=== PATIENT | female | born 1935 | race Caucasian/White ===

== ENCOUNTER 2016-10-30 11:09 | Inpatient (IN) | payer MEDICARE, MEDICAID ==
[~2016-10-30] VITALS: Ht 162.6 cm; Wt 83.3 kg
[~2016-10-30 11:09] MED LIST: ETOMIDATE 2MG/ML 10ML VIAL IV ONE; FAMO20TA8 PO; PRAV20TA57 PO; SUCCINYLCHOLINE CHLORIDE 200MG/10ML VIAL IV ONE
[2016-10-30] MEDS ORDERED: SODIUM CHLORIDE 0.9% 1,000 ML IV ONE (11:28)
[2016-10-30 12:36] LABS: PROTHROMBIN TIME 10.4 sec (9.4-11.6)
[2016-10-30 12:38] LABS: BASOPHILS % 0.6 % (0.0-2.0); EOSINOPHILS % 0.3 % (0.0-5.0); HEMOGLOBIN. 10.1 g/dL (12.0-16.0); LYMPHOCYTES % 8.4 % (20.0-50.0); MEAN CORPUSCULAR HEMOGLOBIN 24.2 pg (28.0-32.0); MEAN PLATELET VOLUME 8.9 fl (7.4-10.4); MONOCYTES % 6.3 % (2.0-8.0); NEUTROPHILS % 84.4 % (40.0-76.0); PLATELET 440 x1000/uL (130-400); RED BLOOD CELL COUNT 4.16 mill/uL (4.2-5.4); RED CELL DISTRIBUTION WIDTH 19.1 % (11.6-14.6)
[2016-10-30 12:45] LABS: CARBON DIOXIDE 27 mEq/L (21-32); CHLORIDE 92 mEq/L (98-107); TROPONIN I 0.05 ng/mL (0.00-0.04)
[2016-10-30] MEDS ORDERED: CEFTRIAXONE 1 G PREMIX 50 ML IV ONE (12:45)
[2016-10-30] MEDS ORDERED: SODIUM CHLORIDE 0.9% 10ML VIAL ONE (14:05)
[2016-10-30] MEDS ORDERED: IOHEXOL-300 100 ML BOTTLE ONE (14:05)
[2016-10-30] MEDS ORDERED: ONDANSETRON HCL 4MG/2ML VIAL IV PRN (15:45)
[2016-10-30] MEDS ORDERED: DEXTROSE 50% WATER 50ML SYRINGE IV PRN (15:45)
[2016-10-30] MEDS ORDERED: MIDAZOLAM HCL 2 MG/2 ML VIAL IV ONE (16:00)
[2016-10-30] MEDS ORDERED: NOREPINEPHRINE 4 MG in DEXT 5% WATER 246 ML IV ONE (16:00)
[2016-10-30] MEDS ORDERED: CLINDAMYCIN 600 MG in DEXTROSE 5% WATER 50 ML IV ONE (16:00)
[2016-10-30 16:28] LABS: TOTAL IRON BINDING CAPACITY 288 ug/dL (250-450)
[2016-10-30] MEDS ORDERED: SUCCINYLCHOLINE CHLORIDE 200MG/10ML VIAL IV ONE (16:30)
[2016-10-30] MEDS ORDERED: NOREPINEPHRINE 4 MG in DEXT 5% WATER 246 ML IV NR (16:30)
[2016-10-30] MEDS ORDERED: ETOMIDATE 2MG/ML 10ML VIAL IV ONE (16:30)
[2016-10-30] MEDS ORDERED: MIDAZOLAM HCL 50 MG in DEXTROSE 5% WATER 40 ML IV ONE (16:30)
[2016-10-30 16:35] LABS: HEMATOCRIT. 28.4 % (36.0-48.0); MEAN CORPUSCULAR HEMOGLOBIN 24.2 pg (28.0-32.0); MEAN CORPUSCULAR VOLUME 76.8 fL (81.0-99.0); PLATELET 350 x1000/uL (130-400); RED CELL DISTRIBUTION WIDTH 19.1 % (11.6-14.6)
[2016-10-30] MEDS ORDERED: MIDAZOLAM HCL 50 MG in DEXTROSE 5% WATER 40 ML IV NR (16:45)
[2016-10-30] MEDS ORDERED: BLOOD SUGAR DIAGNOSTIC STRIP TEST SCH (17:00)
[2016-10-30 17:06] LABS: BG BASE EXCESS 2.3 mmol/L (-2.0-2.0); BG CARBOXYHEMOGLOBIN 0.5 % (0.5-1.5); BG HCO3 ACT 25.8 mmol/L (22.0-26.0); BG METHEMOGLOBIN 0.2 % (0.0-1.5); BG OXYHEMOGLOBIN 98.3 % (94.0-97.0); BG PCO2 36.5 mmHg (35.0-45.0); BG PH 7.468 (7.350-7.450); BG PO2 145.4 mmHg (75.0-100.0); BG SAMPLE SITE RIGHT BRACHIAL; BG TIDAL VOLUME(mL) 500 mL; BG TOTAL HEMOGLOBIN 11.4 g/dL (12.0-18.0); BG VENT MODE VENT - A/C; BG VENT RATE 14 set
[2016-10-30 17:10] LABS: PLATELET ESTIMATE NORMAL
[2016-10-30] MEDS: IPRATROPIUM/ALBUTEROL 0.5-3(2.5)MG/3ML NEB HHN SCH (19:52)
[2016-10-30] MEDS ORDERED: DEXT 5%/0.45% NACL 1000ML 1,000 ML IV SCH (21:00)
[2016-10-30] MEDS: METOPROLOL TARTRATE 50MG TABLET PEG SCH (21:30)
[2016-10-30] MEDS: BLOOD SUGAR DIAGNOSTIC STRIP TEST SCH (22:23)
[2016-10-30] MEDS: INSULIN LISPRO 100 UNITS/ML SUBCUT SCH (22:26)
[2016-10-30] MEDS ORDERED: VANCOMYCIN 1250MG in DEXTROSE 5% WATER 250ML IV NR (23:00)
[2016-10-31] MEDS: PIPERACILLIN/TAZ 3.375G PREMIX 50 ML IV SCH ×3 (00:35→12:10)
[2016-10-31] MEDS: IPRATROPIUM/ALBUTEROL 0.5-3(2.5)MG/3ML NEB HHN SCH ×4 (01:51→19:39)
[2016-10-31 05:45] LABS: HEMATOCRIT. 29.3 % (36.0-48.0); HEMOGLOBIN. 9.1 g/dL (12.0-16.0); MEAN CORPUSCULAR HEMOGLOBIN 24.3 pg (28.0-32.0); MEAN CORPUSCULAR VOLUME 77.8 fL (81.0-99.0); MEAN PLATELET VOLUME 8.9 fl (7.4-10.4); PLATELET 357 x1000/uL (130-400); RED BLOOD CELL COUNT 3.76 mill/uL (4.2-5.4); RED CELL DISTRIBUTION WIDTH 18.8 % (11.6-14.6)
[2016-10-31 06:07] LABS: PHOSPHORUS 3.7 mg/dL (2.5-4.9)
[2016-10-31] MEDS ORDERED: NOREPINEPHRINE 8 MG in DEXT 5% WATER 492 ML IV PRN (06:15)
[2016-10-31] MEDS: BLOOD SUGAR DIAGNOSTIC STRIP TEST SCH ×4 (06:18→20:42)
[2016-10-31] MEDS: INSULIN LISPRO 100 UNITS/ML SUBCUT SCH ×4 (06:20→20:42)
[2016-10-31 07:58] LABS: BG BASE EXCESS 3.1 mmol/L (-2.0-2.0); BG CARBOXYHEMOGLOBIN 0.4 % (0.5-1.5); BG DEOXYHEMOGLOBIN 1.4 % (0.0-5.0); BG FRACTION INSPIRED OXYGEN 40; BG HCO3 ACT 26.1 mmol/L (22.0-26.0); BG METHEMOGLOBIN 0.2 % (0.0-1.5); BG OXYGEN SATURATION 98.6 % (92.0-98.5); BG PCO2 33.7 mmHg (35.0-45.0); BG PH 7.507 (7.350-7.450); BG PO2 115.3 mmHg (75.0-100.0); BG SAMPLE SITE RIGHT BRACHIAL; BG TIDAL VOLUME(mL) 500 mL; BG TOTAL HEMOGLOBIN 9.5 g/dL (12.0-18.0); BG VENT MODE VENT - A/C; BG VENT RATE 14 set
[2016-10-31] MEDS ORDERED: MORPHINE SULFATE 4 MG/ML CPJ (NOT FOR IM USE) IV PRN (08:30)
[2016-10-31] MEDS: METOPROLOL TARTRATE 50MG TABLET PEG SCH (08:57)
[2016-10-31] MEDS: PANTOPRAZOLE SODIUM 40 MG/VIAL IV SCH (09:59)
[2016-10-31] MEDS: SODIUM CHLORIDE 0.9% 1,000 ML IV SCH (10:52)
[2016-10-31] MEDS: PROPOFOL 10MG/ML 100ML 100 ML IV PRN (10:55)
[2016-10-31] MEDS ORDERED: VANCOMYCIN 750 MG PREMIX 150 ML IV SCH (11:00)
[2016-10-31 11:31] LABS: PLATELET ESTIMATE NORMAL
[2016-10-31] MEDS ORDERED: VANCOMYCIN 500 MG PREMIX 100 ML IV NR (13:00)
[2016-10-31] MEDS ORDERED: LIDOCAINE HCL 1% 20ML VIAL (Pyxis) INJ INFIL NR (14:15)
[2016-10-31] MEDS: PIPERACILLIN/TAZ 2.25G PREMIX 50 ML IV SCH (22:08)
[2016-11-01 00:38] LABS: CLARITY URINE TURBID (CLEAR); COLOR URINE YELLOW (YELLOW); KETONES URINE NEGATIVE (NEGATIVE); LEUKOCYTE ESTERASE URINE 3+ (NEGATIVE); NITRITE URINE NEGATIVE (NEGATIVE); OCCULT BLOOD URINE 3+ (NEGATIVE); PROTEIN URINE 2+ (NEGATIVE); SPECIFIC GRAVITY URINE 1.033 (1.005-1.030); UROBILINOGEN URINE 0.2 E.U./dL (0.2-1.0)
[2016-11-01] MEDS: IPRATROPIUM/ALBUTEROL 0.5-3(2.5)MG/3ML NEB HHN SCH ×4 (01:51→20:08)
[2016-11-01] MEDS: SODIUM CHLORIDE 0.9% 1,000 ML IV SCH (04:00)
[2016-11-01] MEDS: PROPOFOL 10MG/ML 100ML 100 ML IV PRN (05:20)
[2016-11-01 05:34] LABS: BASOPHILS % 0.9 % (0.0-2.0); HEMATOCRIT. 24.4 % (36.0-48.0); HEMOGLOBIN. 7.7 g/dL (12.0-16.0); LYMPHOCYTES % 8.1 % (20.0-50.0); MEAN CORPUSCULAR HEMOGLOBIN 24.3 pg (28.0-32.0); MEAN CORPUSCULAR VOLUME 77.1 fL (81.0-99.0); MEAN PLATELET VOLUME 8.8 fl (7.4-10.4); MONOCYTES % 5.3 % (2.0-8.0); NEUTROPHILS % 84.7 % (40.0-76.0); PLATELET 301 x1000/uL (130-400); RED BLOOD CELL COUNT 3.17 mill/uL (4.2-5.4); RED CELL DISTRIBUTION WIDTH 19.3 % (11.6-14.6)
[2016-11-01] MEDS: PIPERACILLIN/TAZ 2.25G PREMIX 50 ML IV SCH ×3 (06:24→22:05)
[2016-11-01] MEDS: BLOOD SUGAR DIAGNOSTIC STRIP TEST SCH ×4 (06:28→20:40)
[2016-11-01] MEDS: INSULIN LISPRO 100 UNITS/ML SUBCUT SCH ×4 (06:28→20:31)
[2016-11-01] MEDS: PANTOPRAZOLE SODIUM 40 MG/VIAL IV SCH (08:26)
[2016-11-01] MEDS ORDERED: MORPHINE SULFATE 4 MG/ML CPJ (NOT FOR IM USE) IV PRN (10:00)
[2016-11-01] MEDS ORDERED: LORAZEPAM 2MG/ML CPJ IV PRN (10:00)
[2016-11-01] MEDS ORDERED: VANCOMYCIN 750 MG PREMIX 150 ML IV SCH (13:00)
[2016-11-01 13:45] LABS: BG BASE EXCESS 2.3 mmol/L (-2.0-2.0); BG CARBOXYHEMOGLOBIN 0.7 % (0.5-1.5); BG DEOXYHEMOGLOBIN 0.8 % (0.0-5.0); BG FRACTION INSPIRED OXYGEN 40; BG HCO3 ACT 25.8 mmol/L (22.0-26.0); BG METHEMOGLOBIN 0.3 % (0.0-1.5); BG OXYGEN SATURATION 99.2 % (92.0-98.5); BG OXYHEMOGLOBIN 98.2 % (94.0-97.0); BG PCO2 35.3 mmHg (35.0-45.0); BG PH 7.482 (7.350-7.450); BG PO2 148.8 mmHg (75.0-100.0); BG PRESSURE SUPPORT 8; BG SAMPLE SITE RIGHT RADIAL; BG TIDAL VOLUME(mL) 500 mL; BG TOTAL HEMOGLOBIN 8.2 g/dL (12.0-18.0); BG VENT MODE VENT - SIMV; BG VENT RATE 12 set
[2016-11-02] MEDS: IPRATROPIUM/ALBUTEROL 0.5-3(2.5)MG/3ML NEB HHN SCH ×4 (02:02→19:56)
[2016-11-02 05:18] LABS: BASOPHILS % 0.8 % (0.0-2.0); EOSINOPHILS % 1.3 % (0.0-5.0); HEMATOCRIT. 27.7 % (36.0-48.0); HEMOGLOBIN. 8.9 g/dL (12.0-16.0); LYMPHOCYTES % 8.1 % (20.0-50.0); MEAN CORPUSCULAR HEMOGLOBIN 25.7 pg (28.0-32.0); MEAN CORPUSCULAR VOLUME 79.7 fL (81.0-99.0); MEAN PLATELET VOLUME 8.7 fl (7.4-10.4); MONOCYTES % 5.9 % (2.0-8.0); NEUTROPHILS % 83.9 % (40.0-76.0); PLATELET 257 x1000/uL (130-400); RED BLOOD CELL COUNT 3.48 mill/uL (4.2-5.4); RED CELL DISTRIBUTION WIDTH 18.6 % (11.6-14.6)
[2016-11-02] MEDS: PIPERACILLIN/TAZ 2.25G PREMIX 50 ML IV SCH ×3 (05:46→21:43)
[2016-11-02] MEDS: BLOOD SUGAR DIAGNOSTIC STRIP TEST SCH ×4 (05:54→21:41)
[2016-11-02] MEDS: INSULIN LISPRO 100 UNITS/ML SUBCUT SCH ×4 (05:54→21:46)
[2016-11-02] MEDS: PANTOPRAZOLE SODIUM 40 MG/VIAL IV SCH (08:46)
[2016-11-02] MEDS ORDERED: VANCOMYCIN 1250MG in DEXTROSE 5% WATER 250ML IV SCH (10:00)
[2016-11-02 11:19] LABS: BG BASE EXCESS 3.4 mmol/L (-2.0-2.0); BG CARBOXYHEMOGLOBIN 0.3 % (0.5-1.5); BG DEOXYHEMOGLOBIN 1.1 % (0.0-5.0); BG FRACTION INSPIRED OXYGEN 40; BG HCO3 ACT 27.2 mmol/L (22.0-26.0); BG METHEMOGLOBIN 0.2 % (0.0-1.5); BG OXYGEN SATURATION 98.9 % (92.0-98.5); BG OXYHEMOGLOBIN 98.4 % (94.0-97.0); BG PCO2 38.1 mmHg (35.0-45.0); BG PH 7.471 (7.350-7.450); BG PO2 155.5 mmHg (75.0-100.0); BG PRESSURE SUPPORT 6; BG SAMPLE SITE RIGHT RADIAL; BG TOTAL HEMOGLOBIN 9.5 g/dL (12.0-18.0); BG VENT MODE VENT - CPAP
[2016-11-02] MEDS: SODIUM CHLORIDE 0.9% 1,000 ML IV SCH ×2 (18:40→21:45)
[2016-11-03] MEDS: IPRATROPIUM/ALBUTEROL 0.5-3(2.5)MG/3ML NEB HHN SCH ×4 (02:16→21:06)
[2016-11-03] MEDS: BLOOD SUGAR DIAGNOSTIC STRIP TEST SCH ×4 (05:44→20:35)
[2016-11-03] MEDS: PIPERACILLIN/TAZ 2.25G PREMIX 50 ML IV SCH ×3 (05:46→20:35)
[2016-11-03] MEDS: INSULIN LISPRO 100 UNITS/ML SUBCUT SCH ×4 (06:54→20:45)
[2016-11-03] MEDS: PANTOPRAZOLE SODIUM 40 MG/VIAL IV SCH (08:35)
[2016-11-03] MEDS: VANCOMYCIN 750 MG PREMIX 150 ML IV SCH (18:08)
[2016-11-03] MEDS: SODIUM CHLORIDE 0.9% 1,000 ML IV SCH (20:40)
[2016-11-04] MEDS: IPRATROPIUM/ALBUTEROL 0.5-3(2.5)MG/3ML NEB HHN SCH ×4 (01:26→19:51)
[2016-11-04] MEDS: PIPERACILLIN/TAZ 2.25G PREMIX 50 ML IV SCH ×3 (01:59→14:22)
[2016-11-04 05:13] LABS: BASOPHILS % 0.9 % (0.0-2.0); EOSINOPHILS % 3.2 % (0.0-5.0); HEMATOCRIT. 27.5 % (36.0-48.0); HEMOGLOBIN. 8.8 g/dL (12.0-16.0); MEAN CORPUSCULAR HEMOGLOBIN 25.8 pg (28.0-32.0); MEAN CORPUSCULAR VOLUME 80.2 fL (81.0-99.0); MEAN PLATELET VOLUME 8.7 fl (7.4-10.4); MONOCYTES % 5.6 % (2.0-8.0); NEUTROPHILS % 77.3 % (40.0-76.0); PLATELET 243 x1000/uL (130-400); RED BLOOD CELL COUNT 3.43 mill/uL (4.2-5.4); RED CELL DISTRIBUTION WIDTH 19.1 % (11.6-14.6)
[2016-11-04 05:55] LABS: PHOSPHORUS 2.1 mg/dL (2.5-4.9)
[2016-11-04] MEDS: BLOOD SUGAR DIAGNOSTIC STRIP TEST SCH ×4 (07:30→20:12)
[2016-11-04] MEDS: INSULIN LISPRO 100 UNITS/ML SUBCUT SCH ×4 (07:36→20:17)
[2016-11-04] MEDS: PANTOPRAZOLE SODIUM 40 MG/VIAL IV SCH (08:19)
[2016-11-04] MEDS ORDERED: POTASSIUM PHOS,M-BASIC-D-BASIC 15 MMOL in DEXT 5% WATER 245 ML IV SCH (10:00)
[2016-11-04] MEDS: FERROUS SULFATE 300MG/5ML UDC PO SCH ×2 (12:39→17:17)
[2016-11-04] MEDS: VANCOMYCIN 750 MG PREMIX 150 ML IV SCH (17:19)
[2016-11-04] MEDS: SODIUM CHLORIDE 0.9% 1,000 ML IV SCH (20:00)
[2016-11-04] MEDS: PIPERACILLIN/TAZ 3.375G PREMIX 50 ML IV SCH (20:00)
[2016-11-05] MEDS: IPRATROPIUM/ALBUTEROL 0.5-3(2.5)MG/3ML NEB HHN SCH ×3 (01:43→13:14)
[2016-11-05] MEDS: PIPERACILLIN/TAZ 3.375G PREMIX 50 ML IV SCH ×3 (02:40→13:13)
[2016-11-05 06:24] LABS: BASOPHILS % 0.6 % (0.0-2.0); EOSINOPHILS % 2.6 % (0.0-5.0); HEMATOCRIT. 27.9 % (36.0-48.0); LYMPHOCYTES % 10.8 % (20.0-50.0); MEAN CORPUSCULAR VOLUME 80.9 fL (81.0-99.0); MEAN PLATELET VOLUME 8.6 fl (7.4-10.4); MONOCYTES % 6.4 % (2.0-8.0); NEUTROPHILS % 79.6 % (40.0-76.0); PLATELET 249 x1000/uL (130-400); RED BLOOD CELL COUNT 3.45 mill/uL (4.2-5.4); RED CELL DISTRIBUTION WIDTH 18.7 % (11.6-14.6)
[2016-11-05 06:33] LABS: CARBON DIOXIDE 21 mEq/L (21-32); CHLORIDE 112 mEq/L (98-107)
[2016-11-05] MEDS: BLOOD SUGAR DIAGNOSTIC STRIP TEST SCH ×2 (06:55→13:14)
[2016-11-05] MEDS: INSULIN LISPRO 100 UNITS/ML SUBCUT SCH ×2 (07:14→14:04)
[2016-11-05] MEDS: FERROUS SULFATE 300MG/5ML UDC PO SCH ×2 (10:30→13:13)
[2016-11-05] MEDS: PANTOPRAZOLE SODIUM 40 MG/VIAL IV SCH (10:30)
[2016-11-05] MEDS: SODIUM CHLORIDE 0.9% 1,000 ML IV SCH (10:31)
[2016-11-05] MEDS ORDERED: LORAZEPAM 2MG/ML CPJ IV PRN (10:45)
[2016-11-05] MEDS ORDERED: MORPHINE SULFATE 4 MG/ML CPJ (NOT FOR IM USE) IV PRN (10:45)
[2016-11-05] MEDS ORDERED: INSULIN DETEMIR UD 100 UNITS/ML SYR SUBCUT SCH (11:00)
[2016-11-05 16:23] VITALS: BP 147/88
[2016-11-06] MEDS ORDERED: FAMOTIDINE 20MG/2ML VIAL IV SCH (09:00)
== END 2016-11-05 17:45 | DRG 871 ==
LOC: EDBEDREQ 11:50 → EDBEDREQSVC 11:50 → ER 12:03 → EDBEDREQ 13:09 → ENRESERV 15:23 → CANRESERV 15:23 → MICUSO 15:54 → EDBEDREQ 15:59 → EDBEDREQSVC 15:59 → ENRESERV 19:08 → EDBEDREQ 20:39 → 5EST 11-04 05:00
PROVIDERS: ADMIT Family Medicine Adult Medicine; ATTEND Family Medicine Adult Medicine
PROC: 5A1945Z Respiratory Ventilation, 24-96 Consecutive Hours (ICD-10-PCS; principal; 2016-10-30)
PROC: 0BH17EZ Insertion of Endotracheal Airway into Trachea, Via Natural or Artificial Opening (ICD-10-PCS; 2016-10-30)
PROC: 30233N1 Transfusion of Nonautologous Red Blood Cells into Peripheral Vein, Percutaneous Approach (ICD-10-PCS; 2016-11-01)
PROC: B548ZZA Ultrasonography of Superior Vena Cava, Guidance (ICD-10-PCS; 2016-11-05)
PROC: 02HV33Z Insertion of Infusion Device into Superior Vena Cava, Percutaneous Approach (ICD-10-PCS; 2016-11-05)
DX: A41.9 Sepsis, unspecified organism (principal); J96.00 Acute respiratory failure, unspecified whether with hypoxia or hypercapnia; N17.0 Acute kidney failure with tubular necrosis; R65.21 Severe sepsis with septic shock; G82.50 Quadriplegia, unspecified; L89.154 Pressure ulcer of sacral region, stage 4; G93.41 Metabolic encephalopathy; I11.0 Hypertensive heart disease with heart failure; E87.0 Hyperosmolality and hypernatremia; I50.40 Unspecified combined systolic (congestive) and diastolic (congestive) heart failure; K61.1 Rectal abscess; E87.1 Hypo-osmolality and hyponatremia; M46.28 Osteomyelitis of vertebra, sacral and sacrococcygeal region; L89.159 Pressure ulcer of sacral region, unspecified stage; F03.90 Unspecified dementia, unspecified severity, without behavioral disturbance, psychotic disturbance, mood disturbance, and anxiety; E11.69 Type 2 diabetes mellitus with other specified complication; D50.0 Iron deficiency anemia secondary to blood loss (chronic); N30.91 Cystitis, unspecified with hematuria; E78.00 Pure hypercholesterolemia, unspecified; E78.1 Pure hyperglyceridemia; E86.0 Dehydration; I25.5 Ischemic cardiomyopathy; K21.9 Gastro-esophageal reflux disease without esophagitis; N14.1 Nephropathy induced by other drugs, medicaments and biological substances; R13.10 Dysphagia, unspecified; R31.0 Gross hematuria; T50.8X5A Adverse effect of diagnostic agents, initial encounter; Z93.1 Gastrostomy status; Z88.2 Allergy status to sulfonamides; Z88.8 Allergy status to other drugs, medicaments and biological substances; Z88.1 Allergy status to other antibiotic agents; Z91.040 Latex allergy status
CPT/HCPCS: 31500; 36415; 36556; 36569; 36600; 51702; 71010; 74177; 76937; 80048; 80053; 80076; 80202; 81001; 82375; 82805; 82962; 83540; 83550; 83605; 83690; 83735; 83880; 84100; 84443; 84478; 84484; 85007; 85025; 85027; 85610; 85651; 86140; 86850; 86900; 86920; 87040; 87086; 93005; 93306; 93970; 94002; 94003; 94640; 96365; 96366; 96375; 99291; A4216; A6261; C1725; C9113; J0330; J0696; J1815; J2250; J2270; J2543; J2704; J3370; J3490; J7030; J7040; J7050; J7060; J7620; P9016; Q9967; A4315

== ENCOUNTER 2018-01-06 16:27 | Inpatient (IN) | payer MEDICARE, MEDICAID ==
[~2018-01-06] VITALS: Ht 165.1 cm; Wt 73.7 kg
[~2018-01-06 16:27] MED LIST changes: +ACET160S GT; +AMLO2.5T45 GT; +BISA10SU8 RC; +CEFT1VIA IM; +CHOL100046 GT; +DEXT15DR5 EACHEYE; -ETOMIDATE 2MG/ML 10ML VIAL IV ONE; +FAMO20TA8 GT; -FAMO20TA8 PO; +FERR220S6 GT; +HYDR-4133 GT; +MAGN800O GT; +MULT-1146 GT; +ONDA4TAB5 GT; +PANT40TA4 GT; -PRAV20TA57 PO; -SUCCINYLCHOLINE CHLORIDE 200MG/10ML VIAL IV ONE
[2018-01-06 19:58] LABS: CLARITY URINE TURBID (CLEAR); COLOR URINE YELLOW (YELLOW); KETONES URINE NEGATIVE (NEGATIVE); LEUKOCYTE ESTERASE URINE 3+ (NEGATIVE); NITRITE URINE NEGATIVE (NEGATIVE); OCCULT BLOOD URINE 1+ (NEGATIVE); PROTEIN URINE 1+ (NEGATIVE); SPECIFIC GRAVITY URINE 1.008 (1.005-1.030); UROBILINOGEN URINE 0.2 E.U./dL (0.2-1.0)
[2018-01-06] MEDS ORDERED: LEVOFLOXACIN 750MG PREMIX 150 ML IV ONE (20:30)
[2018-01-06 20:31] LABS: BASOPHILS % 0.9 % (0.0-2.0); EOSINOPHILS % 2.5 % (0.0-5.0); HEMATOCRIT. 30.2 % (36.0-48.0); LYMPHOCYTES % 9.6 % (20.0-50.0); MEAN CORPUSCULAR HEMOGLOBIN 27.5 pg (28.0-32.0); MEAN CORPUSCULAR VOLUME 83.3 fL (81.0-99.0); MONOCYTES % 6.8 % (2.0-8.0); NEUTROPHILS % 80.2 % (40.0-76.0); PLATELET 351 x1000/uL (130-400); RED BLOOD CELL COUNT 3.63 mill/uL (4.2-5.4); RED CELL DISTRIBUTION WIDTH 17.1 % (11.6-14.6)
[2018-01-06 20:32] LABS: CHLORIDE 95 mEq/L (98-107)
[2018-01-06] MEDS ORDERED: SODIUM CHLORIDE 0.9% 1,000 ML IV ONE (21:11)
[2018-01-07 00:50] VITALS: BP 129/62
[2018-01-07 02:18] VITALS: BP 129/62
[2018-01-07 04:00] VITALS: BP 105/47
[2018-01-07] MEDS: SODIUM CHLORIDE 0.9% 1,000 ML IV SCH ×2 (04:26→12:30)
[2018-01-07] MEDS: HYDRALAZINE HCL 10MG TABLET GT SCH ×2 (05:45→14:36)
[2018-01-07 07:11] LABS: EOSINOPHILS % 2.3 % (0.0-5.0); HEMATOCRIT. 28.6 % (36.0-48.0); HEMOGLOBIN. 9.5 g/dL (12.0-16.0); LYMPHOCYTES % 12.6 % (20.0-50.0); MEAN CORPUSCULAR HEMOGLOBIN 27.6 pg (28.0-32.0); MEAN CORPUSCULAR VOLUME 83.2 fL (81.0-99.0); MONOCYTES % 8.4 % (2.0-8.0); NEUTROPHILS % 75.7 % (40.0-76.0); PLATELET 322 x1000/uL (130-400); RED BLOOD CELL COUNT 3.44 mill/uL (4.2-5.4); RED CELL DISTRIBUTION WIDTH 17.4 % (11.6-14.6)
[2018-01-07 08:00] VITALS: BP 96/32
[2018-01-07] MEDS ORDERED: DEXTROSE 50% WATER 50ML SYRINGE IV PRN (08:15)
[2018-01-07] MEDS ORDERED: LEVOFLOXACIN 500MG PREMIX 100 ML IV SCH (09:00)
[2018-01-07] MEDS ORDERED: FAMOTIDINE 20MG/2ML VIAL IV SCH (09:00)
[2018-01-07] MEDS: INSULIN LISPRO 100 UNITS/ML SUBCUT SCH ×2 (11:55→17:19)
[2018-01-07] MEDS: BLOOD SUGAR DIAGNOSTIC STRIP TEST SCH ×2 (11:55→17:19)
[2018-01-07 12:00] VITALS: BP 122/61
[2018-01-07 16:00] VITALS: BP 107/50
[2018-01-07] MEDS ORDERED: LEVOFLOXACIN 250MG PREMIX 50 ML IV SCH (21:00)
== END 2018-01-07 18:35 | disposition short-term general hospital (02) | DRG 698 ==
LOC: ER 16:27 → 8WST 20:34 → ENRESERV 20:49
PROVIDERS: ADMIT Internal Medicine Critical Care Medicine; ATTEND Internal Medicine Critical Care Medicine
DX: T83.511A Infection and inflammatory reaction due to indwelling urethral catheter, initial encounter (principal); L89.154 Pressure ulcer of sacral region, stage 4; E46 Unspecified protein-calorie malnutrition; I13.0 Hypertensive heart and chronic kidney disease with heart failure and stage 1 through stage 4 chronic kidney disease, or unspecified chronic kidney disease; N17.9 Acute kidney failure, unspecified; N39.0 Urinary tract infection, site not specified; E11.22 Type 2 diabetes mellitus with diabetic chronic kidney disease; E78.00 Pure hypercholesterolemia, unspecified; E86.0 Dehydration; F03.90 Unspecified dementia, unspecified severity, without behavioral disturbance, psychotic disturbance, mood disturbance, and anxiety; I50.9 Heart failure, unspecified; K21.9 Gastro-esophageal reflux disease without esophagitis; Y84.6 Urinary catheterization as the cause of abnormal reaction of the patient, or of later complication, without mention of misadventure at the time of the procedure; N18.3 Chronic kidney disease, stage 3 (moderate); R13.10 Dysphagia, unspecified; Z66 Do not resuscitate; I25.2 Old myocardial infarction; Z86.73 Personal history of transient ischemic attack (TIA), and cerebral infarction without residual deficits; Y92.89 Other specified places as the place of occurrence of the external cause; Z68.27 Body mass index [BMI] 27.0-27.9, adult; Z93.1 Gastrostomy status; Z88.2 Allergy status to sulfonamides; Z88.8 Allergy status to other drugs, medicaments and biological substances; Z91.040 Latex allergy status; Z79.1 Long term (current) use of non-steroidal anti-inflammatories (NSAID); Z79.899 Other long term (current) drug therapy
CPT/HCPCS: 36415; 51702; 71045; 80048; 82962; 83036; 83540; 83550; 84134; 87077; 87186; 93970; 96365; 96366; 99285; J1956; J3490; J7030

== ENCOUNTER 2018-03-28 17:12 | Inpatient (IN) | payer MEDICARE, MEDICAID ==
[~2018-03-28] VITALS: Ht 165.1 cm; Wt 78.9 kg
[~2018-03-28 17:12] MED LIST changes: -CEFT1VIA IM; -CHOL100046 GT
[2018-03-28] MEDS ORDERED: PIPERACILLIN/TAZ 3.375G PREMIX 50 ML IV ONE (18:00)
[2018-03-28] MEDS ORDERED: VANCOMYCIN 1 G PREMIX 200 ML IV ONE (18:00)
[2018-03-28] MEDS ORDERED: LEVOFLOXACIN 750MG PREMIX 150 ML IV ONE (18:00)
[2018-03-28] MEDS ORDERED: SODIUM CHLORIDE 0.9% 1000ML BAG (SEPSIS BOLUS) IV ONE (18:00)
[2018-03-28] MEDS ORDERED: FENTANYL CITRATE/PF 50MCG/ML 2ML VIAL IV ONE (19:00)
[2018-03-28 19:02] LABS: BASOPHILS % 0.8 % (0.0-2.0); EOSINOPHILS % 0.7 % (0.0-5.0); HEMATOCRIT. 25.6 % (36.0-48.0); HEMOGLOBIN. 8.2 g/dL (12.0-16.0); LYMPHOCYTES % 10.3 % (20.0-50.0); MEAN CORPUSCULAR HEMOGLOBIN 26.5 pg (28.0-32.0); MEAN CORPUSCULAR VOLUME 82.6 fL (81.0-99.0); MEAN PLATELET VOLUME 9.6 fl (7.4-10.4); MONOCYTES % 5.8 % (2.0-8.0); NEUTROPHILS % 82.4 % (40.0-76.0); PLATELET 314 x1000/uL (130-400)
[2018-03-28 19:07] LABS: CHLORIDE 100 mEq/L (98-107)
[2018-03-28 19:14] LABS: CLARITY URINE TURBID (CLEAR); COLOR URINE RED (YELLOW); KETONES URINE 2+ (NEGATIVE); LEUKOCYTE ESTERASE URINE 3+ (NEGATIVE); NITRITE URINE POSITIVE (NEGATIVE); OCCULT BLOOD URINE 3+ (NEGATIVE); PROTEIN URINE 3+ (NEGATIVE); SPECIFIC GRAVITY URINE 1.015 (1.005-1.030)
[2018-03-28 19:20] LABS: INR 1.1; PROTHROMBIN TIME 10.9 sec (9.1-11.1)
[2018-03-28] MEDS ORDERED: SODIUM CHLORIDE 0.9% 1,000 ML IV NR (20:05)
[2018-03-28] MEDS ORDERED: CALCIUM CHLORIDE 1GM/10ML SYR IV NR (20:45)
[2018-03-28] MEDS ORDERED: DEXTROSE 50% WATER 50ML SYRINGE IV NR (20:45)
[2018-03-28] MEDS ORDERED: INSULIN REGULAR (HUMULIN R) 300UNITS/3ML IV NR (20:45)
[2018-03-28] MEDS ORDERED: ASPIRIN 325MG TABLET GT NR (21:30)
[2018-03-28 22:45] VITALS: BP 94/53
[2018-03-28 23:41] VITALS: BP 121/53
[2018-03-29] VITALS (11 sets, daily range): BP systolic 65–115; BP diastolic 33–56
[2018-03-29] MEDS ORDERED: INSULIN LANTUS SQ (01:24)
[2018-03-29] MEDS ORDERED: FENO160T9 PO (01:24)
[2018-03-29] MEDS ORDERED: INSULI (01:24)
[2018-03-29] MEDS ORDERED: FOLI-43 PO (01:24)
[2018-03-29] MEDS ORDERED: FLEET ENEMA RC (01:48)
[2018-03-29] MEDS ORDERED: MOM GT (01:48)
[2018-03-29] MEDS ORDERED: [UNRECOGNIZED DRUG - OTHER] (01:48)
[2018-03-29] MEDS ORDERED: PYRI25TA11 GT (01:48)
[2018-03-29] MEDS ORDERED: LOSA50TA3 GT (01:48)
[2018-03-29] MEDS ORDERED: POLY15DR56 EACHEYE (01:48)
[2018-03-29] MEDS ORDERED: SODIUM CHLORIDE 0.9% 250 ML IV ONE (03:15)
[2018-03-29] MEDS: SODIUM CHLORIDE 0.45% 1,000 ML IV SCH ×2 (03:19→16:42)
[2018-03-29] MEDS ORDERED: ACETAMINOPHEN 650MG/20.3ML UDC PO PRN (03:30)
[2018-03-29] MEDS ORDERED: BISACODYL RC SCH (04:00)
[2018-03-29] MEDS ORDERED: ONDANSETRON HCL 4 MG GT SCH (04:00)
[2018-03-29] MEDS ORDERED: MEDICATION NOT ON FORMULARY EA (Famotidine 20 MG) GT SCH (04:00)
[2018-03-29] MEDS ORDERED: BISACODYL 10MG SUPP PR PRN (04:30)
[2018-03-29] MEDS ORDERED: ONDANSETRON 4MG/5ML UDC GT PRN (04:45)
[2018-03-29] MEDS ORDERED: DEXTROSE 50% WATER 50ML SYRINGE IV PRN (05:00)
[2018-03-29] MEDS: PIPERACILLIN/TAZOBACTAM 2.25 G in DEXTROSE 5% WATER 50 ML IV SCH ×2 (05:27→14:41)
[2018-03-29] MEDS ORDERED: PIPERACILLIN/TAZOBACTAM 2.25 G in DEXTROSE 5% WATER 50 ML IV SCH (06:00)
[2018-03-29] MEDS: BLOOD SUGAR DIAGNOSTIC STRIP TEST SCH ×3 (06:52→18:00)
[2018-03-29] MEDS: INSULIN LISPRO 100 UNITS/ML SUBCUT SCH ×4 (06:52→21:00)
[2018-03-29] MEDS: VANCOMYCIN 750 MG PREMIX 150 ML IV SCH (08:41)
[2018-03-29] MEDS: ENOXAPARIN 30MG/0.3ML SYR SUBCUT SCH (08:41)
[2018-03-29] MEDS: POLYVINYL ALCOHOL OPHTH DROPS 15ML EACHEYE SCH ×2 (08:41→16:42)
[2018-03-29] MEDS: FAMOTIDINE 20MG TABLET GT SCH (08:42)
[2018-03-29] MEDS: FOLIC ACID 1MG TABLET PO SCH (08:42)
[2018-03-29] MEDS: PYRIDOXINE HCL 50MG TABLET GT SCH (08:42)
[2018-03-29] MEDS: MULTIVITAMINS,THER W-MINERALS TABLET GT SCH (08:42)
[2018-03-29] MEDS: FERROUS SULFATE 300MG/5ML UDC GT SCH (08:42)
[2018-03-29] MEDS ORDERED: MEDICATION NOT ON FORMULARY EA (Multivitamin (Multi Vitamin Daily) 1 TAB) GT SCH (09:00)
[2018-03-29] MEDS ORDERED: POLYVINYL ALCOHOL EACHEYE SCH (09:00)
[2018-03-29] MEDS ORDERED: PYRIDOXINE HCL 25 MG GT SCH (09:00)
[2018-03-29] MEDS ORDERED: MEDICATION NOT ON FORMULARY EA (Dextran 70/Hypromellose (Artificial Tears Eye Drops) 1 D EACHEYE SCH (09:00)
[2018-03-29] MEDS ORDERED: MEDICATION NOT ON FORMULARY EA (Folic Acid 1 MG) PO SCH (09:00)
[2018-03-29] MEDS ORDERED: FERROUS SULFATE 220 MG GT SCH (09:00)
[2018-03-29] MEDS ORDERED: MAGNESIUM HYDROXIDE 1200 MG GT SCH (09:00)
[2018-03-29] MEDS ORDERED: FENOFIBRATE 160 MG PO SCH (09:00)
[2018-03-29] MEDS ORDERED: MEDICATION NOT ON FORMULARY EA (Pantoprazole Sodium 1 TAB) GT SCH (09:00)
[2018-03-29 10:13] LABS: HEMATOCRIT. 26.5 % (36.0-48.0); HEMOGLOBIN. 8.6 g/dL (12.0-16.0); MEAN CORPUSCULAR VOLUME 82.8 fL (81.0-99.0); MEAN PLATELET VOLUME 9.5 fl (7.4-10.4); PLATELET 245 x1000/uL (130-400); RED BLOOD CELL COUNT 3.19 mill/uL (4.2-5.4)
[2018-03-29] MEDS: FENOFIBRATE NANOCRYSTALLIZED 145MG TABLET PO SCH (14:40)
[2018-03-29 14:47] LABS: PLATELET ESTIMATE NORMAL
[2018-03-29] MEDS ORDERED: MAGNESIUM HYDROXIDE 400MG/5ML 30ML UDC GT PRN (21:00)
[2018-03-29] MEDS: PIPERACILLIN/TAZ 2.25G PREMIX 50 ML IV SCH (21:42)
[2018-03-30] VITALS (12 sets, daily range): BP systolic 92–128; BP diastolic 41–68
[2018-03-30] MEDS: BLOOD SUGAR DIAGNOSTIC STRIP TEST SCH ×5 (00:09→23:54)
[2018-03-30] MEDS: PIPERACILLIN/TAZ 2.25G PREMIX 50 ML IV SCH ×2 (04:59→14:30)
[2018-03-30] MEDS: SODIUM CHLORIDE 0.45% 1,000 ML IV SCH ×2 (05:16→20:31)
[2018-03-30] MEDS: INSULIN LISPRO 100 UNITS/ML SUBCUT SCH ×5 (05:16→23:54)
[2018-03-30 06:23] LABS: BASOPHILS % 1.3 % (0.0-2.0); EOSINOPHILS % 2.9 % (0.0-5.0); HEMOGLOBIN. 7.9 g/dL (12.0-16.0); MEAN CORPUSCULAR HEMOGLOBIN 27.2 pg (28.0-32.0); MEAN CORPUSCULAR VOLUME 83.1 fL (81.0-99.0); MEAN PLATELET VOLUME 9.5 fl (7.4-10.4); MONOCYTES % 7.3 % (2.0-8.0); NEUTROPHILS % 80.5 % (40.0-76.0); PLATELET 250 x1000/uL (130-400); RED BLOOD CELL COUNT 2.89 mill/uL (4.2-5.4); RED CELL DISTRIBUTION WIDTH 16.2 % (11.6-14.6)
[2018-03-30 06:51] LABS: PHOSPHORUS 2.3 mg/dL (2.5-4.9)
[2018-03-30] MEDS: FAMOTIDINE 20MG TABLET GT SCH (08:57)
[2018-03-30] MEDS: FOLIC ACID 1MG TABLET PO SCH (08:57)
[2018-03-30] MEDS: FERROUS SULFATE 300MG/5ML UDC GT SCH (08:57)
[2018-03-30] MEDS: PYRIDOXINE HCL 50MG TABLET GT SCH (08:57)
[2018-03-30] MEDS: VANCOMYCIN 750 MG PREMIX 150 ML IV SCH (08:57)
[2018-03-30] MEDS: FENOFIBRATE NANOCRYSTALLIZED 145MG TABLET PO SCH (08:57)
[2018-03-30] MEDS: MULTIVITAMINS,THER W-MINERALS TABLET GT SCH (09:10)
[2018-03-30] MEDS: ENOXAPARIN 30MG/0.3ML SYR SUBCUT SCH (09:10)
[2018-03-30] MEDS: POLYVINYL ALCOHOL OPHTH DROPS 15ML EACHEYE SCH ×2 (09:11→17:32)
[2018-03-30] MEDS ORDERED: SODIUM PHOS,M-BASIC-D-BASIC 20 MM in DEXT 5% WATER 243.3333 ML IV NR (18:45)
[2018-03-31] VITALS (13 sets, daily range): BP systolic 93–110; BP diastolic 46–59
[2018-03-31] MEDS: INSULIN LISPRO 100 UNITS/ML SUBCUT SCH ×3 (05:59→17:41)
[2018-03-31] MEDS: BLOOD SUGAR DIAGNOSTIC STRIP TEST SCH ×3 (05:59→17:41)
[2018-03-31 07:31] LABS: HEMATOCRIT. 25.9 % (36.0-48.0); HEMOGLOBIN. 8.3 g/dL (12.0-16.0); MEAN CORPUSCULAR HEMOGLOBIN 27.3 pg (28.0-32.0); MEAN CORPUSCULAR VOLUME 84.8 fL (81.0-99.0); RED BLOOD CELL COUNT 3.05 mill/uL (4.2-5.4); RED CELL DISTRIBUTION WIDTH 16.6 % (11.6-14.6)
[2018-03-31 07:32] LABS: PHOSPHORUS 3.5 mg/dL (2.5-4.9)
[2018-03-31] MEDS: ENOXAPARIN 30MG/0.3ML SYR SUBCUT SCH (08:29)
[2018-03-31] MEDS: FERROUS SULFATE 300MG/5ML UDC GT SCH (08:29)
[2018-03-31] MEDS: FAMOTIDINE 20MG TABLET GT SCH (08:32)
[2018-03-31] MEDS: FOLIC ACID 1MG TABLET PO SCH (08:32)
[2018-03-31] MEDS: MULTIVITAMINS,THER W-MINERALS TABLET GT SCH (08:32)
[2018-03-31] MEDS: PYRIDOXINE HCL 50MG TABLET GT SCH (08:33)
[2018-03-31] MEDS: SODIUM CHLORIDE 0.45% 1,000 ML IV SCH ×2 (08:33→21:48)
[2018-03-31] MEDS: FENOFIBRATE NANOCRYSTALLIZED 145MG TABLET PO SCH (08:33)
[2018-03-31 09:09] LABS: MEAN PLATELET VOLUME 9.6 fl (7.4-10.4); PLATELET 236 x1000/uL (130-400); PLATELET ESTIMATE NORMAL
[2018-03-31] MEDS: POLYVINYL ALCOHOL OPHTH DROPS 15ML EACHEYE SCH ×2 (09:56→17:40)
[2018-04-01] VITALS (11 sets, daily range): BP systolic 90–118; BP diastolic 50–73
[2018-04-01] MEDS: BLOOD SUGAR DIAGNOSTIC STRIP TEST SCH ×4 (00:25→17:59)
[2018-04-01] MEDS: INSULIN LISPRO 100 UNITS/ML SUBCUT SCH ×4 (06:00→17:59)
[2018-04-01 07:43] LABS: EOSINOPHILS % 2.9 % (0.0-5.0); HEMATOCRIT. 26.1 % (36.0-48.0); HEMOGLOBIN. 8.3 g/dL (12.0-16.0); LYMPHOCYTES % 18.8 % (20.0-50.0); MEAN CORPUSCULAR HEMOGLOBIN 26.8 pg (28.0-32.0); MEAN CORPUSCULAR VOLUME 84.1 fL (81.0-99.0); MEAN PLATELET VOLUME 9.7 fl (7.4-10.4); MONOCYTES % 7.3 % (2.0-8.0); PLATELET 272 x1000/uL (130-400); RED BLOOD CELL COUNT 3.11 mill/uL (4.2-5.4); RED CELL DISTRIBUTION WIDTH 16.5 % (11.6-14.6)
[2018-04-01 07:55] LABS: CHLORIDE 110 mEq/L (98-107)
[2018-04-01 08:15] LABS: LDL CHOLESTEROL 91 mg/dL (5-100)
[2018-04-01 08:17] LABS: CREATINE KINASE 30 IU/L (26-192)
[2018-04-01 08:18] LABS: CREATINE KINASE MB FRACTION 1.7 ng/mL (0.5-3.6)
[2018-04-01 08:20] LABS: HDL CHOLESTEROL 36 mg/dL (40-59)
[2018-04-01] MEDS: MULTIVITAMINS,THER W-MINERALS TABLET GT SCH (09:00)
[2018-04-01] MEDS: FOLIC ACID 1MG TABLET PO SCH (09:00)
[2018-04-01] MEDS: FENOFIBRATE NANOCRYSTALLIZED 145MG TABLET PO SCH (09:00)
[2018-04-01] MEDS: PYRIDOXINE HCL 50MG TABLET GT SCH (09:00)
[2018-04-01] MEDS: FERROUS SULFATE 300MG/5ML UDC GT SCH (09:00)
[2018-04-01] MEDS: FAMOTIDINE 20MG TABLET GT SCH (09:01)
[2018-04-01] MEDS: ENOXAPARIN 30MG/0.3ML SYR SUBCUT SCH (09:04)
[2018-04-01] MEDS: POLYVINYL ALCOHOL OPHTH DROPS 15ML EACHEYE SCH ×2 (09:28→17:26)
[2018-04-01] MEDS ORDERED: ASPIRIN 81MG EC TABLET PO SCH (10:00)
[2018-04-01] MEDS: SODIUM CHLORIDE 0.45% 1,000 ML IV SCH (11:30)
[2018-04-01] MEDS ORDERED: ATORVASTATIN CALCIUM 20MG TABLET PO SCH (21:00)
== END 2018-04-01 18:50 | DRG 871 ==
LOC: ER 17:18 → 3WST 20:46 → EDBEDREQTM 20:52 → EDBEDREQ 20:52 → ENRESERV 21:43 → 3WST 22:56
PROVIDERS: ADMIT Internal Medicine Pulmonary Disease; ATTEND Internal Medicine Pulmonary Disease
PROC: 30233N1 Transfusion of Nonautologous Red Blood Cells into Peripheral Vein, Percutaneous Approach (ICD-10-PCS; principal; 2018-03-28)
DX: A41.9 Sepsis, unspecified organism (principal); R65.21 Severe sepsis with septic shock; E43 Unspecified severe protein-calorie malnutrition; L89.154 Pressure ulcer of sacral region, stage 4; I21.4 Non-ST elevation (NSTEMI) myocardial infarction; N17.9 Acute kidney failure, unspecified; I13.0 Hypertensive heart and chronic kidney disease with heart failure and stage 1 through stage 4 chronic kidney disease, or unspecified chronic kidney disease; I50.9 Heart failure, unspecified; R13.10 Dysphagia, unspecified; E11.22 Type 2 diabetes mellitus with diabetic chronic kidney disease; K21.9 Gastro-esophageal reflux disease without esophagitis; B96.20 Unspecified Escherichia coli [E. coli] as the cause of diseases classified elsewhere; B95.62 Methicillin resistant Staphylococcus aureus infection as the cause of diseases classified elsewhere; N18.9 Chronic kidney disease, unspecified; R31.9 Hematuria, unspecified; E86.0 Dehydration; F03.90 Unspecified dementia, unspecified severity, without behavioral disturbance, psychotic disturbance, mood disturbance, and anxiety; D64.9 Anemia, unspecified; E78.00 Pure hypercholesterolemia, unspecified; Z93.1 Gastrostomy status; I25.2 Old myocardial infarction; Z87.440 Personal history of urinary (tract) infections; I69.320 Aphasia following cerebral infarction; Z68.29 Body mass index [BMI] 29.0-29.9, adult; Z88.2 Allergy status to sulfonamides; Z88.8 Allergy status to other drugs, medicaments and biological substances; Z91.040 Latex allergy status; Z79.899 Other long term (current) drug therapy
CPT/HCPCS: 36415; 36430; 71045; 80048; 80061; 80202; 82550; 82553; 82962; 83605; 83735; 84100; 84145; 84443; 84484; 86850; 86900; 86920; 93005; 93306; 96365; 96366; 96368; 96375; 99291; A6261; J1650; J1815; J1956; J2543; J3010; J3370; J3490; J7030; J7050; J7060; P9016; A4315

== ENCOUNTER 2018-05-05 07:55 | Inpatient (IN) | payer MEDICARE, MEDICAID ==
[~2018-05-05] VITALS: Ht 165.1 cm; Wt 70.3 kg
[~2018-05-05 07:55] MED LIST changes: +FENO160T9 PO; +FLEET ENEMA RC; +FOLI-43 PO; +INSULIN LANTUS SQ; +LOSA50TA3 GT; +MOM GT; +POLY15DR56 EACHEYE; +PYRI25TA11 GT; +[UNRECOGNIZED DRUG - OTHER]
[2018-05-05 10:21] LABS: BASOPHILS % 0.4 % (0.0-2.0); EOSINOPHILS % 1.3 % (0.0-5.0); HEMATOCRIT. 24.8 % (36.0-48.0); HEMOGLOBIN. 8.1 g/dL (12.0-16.0); LYMPHOCYTES % 14.5 % (20.0-50.0); MEAN CORPUSCULAR HEMOGLOBIN 25.8 pg (28.0-32.0); MEAN PLATELET VOLUME 8.6 fl (7.4-10.4); MONOCYTES % 6.8 % (2.0-8.0); PLATELET 335 x1000/uL (130-400); RED BLOOD CELL COUNT 3.14 mill/uL (4.2-5.4); RED CELL DISTRIBUTION WIDTH 16.7 % (11.6-14.6)
[2018-05-05 10:26] LABS: CHLORIDE 101 mEq/L (98-107)
[2018-05-05 14:44] VITALS: BP 141/74
[2018-05-05] MEDS ORDERED: BISACODYL RC SCH (16:45)
[2018-05-05] MEDS ORDERED: HYDROCODONE/ACETAMINOPHEN 5/325MG TABLET PO PRN (16:45)
[2018-05-05] MEDS ORDERED: MEDICATION NOT ON FORMULARY EA (Hydralazine Hcl 1 TAB) GT SCH (16:45)
[2018-05-05] MEDS ORDERED: ONDANSETRON HCL 4 MG GT SCH (16:45)
[2018-05-05] MEDS ORDERED: MEDICATION NOT ON FORMULARY EA (Famotidine 20 MG) GT SCH (16:45)
[2018-05-05] MEDS ORDERED: MEDICATION NOT ON FORMULARY EA (Dextran 70/Hypromellose (Artificial Tears Eye Drops) 1 D EACHEYE SCH (17:00)
[2018-05-05] MEDS ORDERED: MEDICATION NOT ON FORMULARY EA (Amlodipine Besylate 5 MG) GT SCH (17:00)
[2018-05-05] MEDS ORDERED: POLYVINYL ALCOHOL EACHEYE SCH (17:00)
[2018-05-05] MEDS ORDERED: BISACODYL 10MG SUPP PR PRN (18:00)
[2018-05-05] MEDS ORDERED: ONDANSETRON 4MG ODT GT PRN (18:00)
[2018-05-05 20:00] VITALS: BP 135/63
[2018-05-05] MEDS ORDERED: FAMOTIDINE 20MG TABLET GT SCH (21:00)
[2018-05-05] MEDS: AMLODIPINE 5MG TABLET GT SCH (21:02)
[2018-05-05] MEDS: POLYVINYL ALCOHOL OPHTH DROPS 15ML EACHEYE SCH (21:02)
[2018-05-05] MEDS: HEPARIN 5000 UNITS/ML VIAL SUBCUT SCH (21:03)
[2018-05-06] VITALS: BP 136/58
[2018-05-06 04:00] VITALS: BP 136/61
[2018-05-06 06:32] LABS: BASOPHILS % 0.6 % (0.0-2.0); EOSINOPHILS % 0.6 % (0.0-5.0); HEMATOCRIT. 22.6 % (36.0-48.0); HEMOGLOBIN. 7.3 g/dL (12.0-16.0); LYMPHOCYTES % 18.5 % (20.0-50.0); MEAN CORPUSCULAR HEMOGLOBIN 25.6 pg (28.0-32.0); MEAN CORPUSCULAR VOLUME 79.2 fL (81.0-99.0); MEAN PLATELET VOLUME 8.8 fl (7.4-10.4); MONOCYTES % 9.1 % (2.0-8.0); NEUTROPHILS % 71.2 % (40.0-76.0); PLATELET 317 x1000/uL (130-400); RED BLOOD CELL COUNT 2.86 mill/uL (4.2-5.4); RED CELL DISTRIBUTION WIDTH 16.6 % (11.6-14.6)
[2018-05-06 06:46] LABS: FOLIC ACID (FOLATE) SERUM >20 ng/mL ng/mL (>5.38)
[2018-05-06 06:57] LABS: VITAMIN B12 SERUM 1109 pg/mL (211-911)
[2018-05-06] MEDS ORDERED: LANSOPRAZOLE 30MG DR CAPSULE GT SCH (07:40)
[2018-05-06 08:00] VITALS: BP 138/70
[2018-05-06 08:22] LABS: CLARITY URINE TURBID (CLEAR); COLOR URINE YELLOW (YELLOW); KETONES URINE NEGATIVE (NEGATIVE); LEUKOCYTE ESTERASE URINE 3+ (NEGATIVE); NITRITE URINE NEGATIVE (NEGATIVE); OCCULT BLOOD URINE 2+ (NEGATIVE); PH URINE 8.5 (4.5-8.0); PROTEIN URINE 2+ (NEGATIVE); SPECIFIC GRAVITY URINE 1.015 (1.005-1.030); UROBILINOGEN URINE 0.2 E.U./dL (0.2-1.0)
[2018-05-06] MEDS ORDERED: MULTIVITAMINS,THER W-MINERALS TABLET GT SCH (09:00)
[2018-05-06] MEDS ORDERED: MEDICATION NOT ON FORMULARY EA (Folic Acid 1 MG) PO SCH (09:00)
[2018-05-06] MEDS ORDERED: FERROUS SULFATE 220 MG GT SCH (09:00)
[2018-05-06] MEDS ORDERED: LOSARTAN POTASSIUM 50 MG TABLET GT SCH (09:00)
[2018-05-06] MEDS ORDERED: FOLIC ACID 1MG TABLET GT SCH (09:00)
[2018-05-06] MEDS ORDERED: LOSARTAN POTASSIUM 50 MG GT SCH (09:00)
[2018-05-06] MEDS ORDERED: PYRIDOXINE HCL 25 MG GT SCH (09:00)
[2018-05-06] MEDS: HEPARIN 5000 UNITS/ML VIAL SUBCUT SCH (09:00)
[2018-05-06] MEDS ORDERED: MEDICATION NOT ON FORMULARY EA (Multivitamin (Multi Vitamin Daily) 1 TAB) GT SCH (09:00)
[2018-05-06] MEDS ORDERED: PYRIDOXINE HCL 50MG TABLET GT SCH (09:00)
[2018-05-06] MEDS ORDERED: MEDICATION NOT ON FORMULARY EA (Pantoprazole Sodium 1 TAB) GT SCH (09:00)
[2018-05-06] MEDS ORDERED: MAGNESIUM HYDROXIDE 1200 MG GT SCH (09:00)
[2018-05-06] MEDS ORDERED: FERROUS SULFATE 300MG/5ML UDC GT SCH (09:00)
[2018-05-06] MEDS: AMLODIPINE 5MG TABLET GT SCH (10:52)
[2018-05-06] MEDS: POLYVINYL ALCOHOL OPHTH DROPS 15ML EACHEYE SCH (10:55)
[2018-05-06 12:00] VITALS: BP 148/62
[2018-05-06 16:42] VITALS: BP 136/57
[2018-05-07] MEDS ORDERED: FENOFIBRATE NANOCRYSTALLIZED 145MG TABLET PO SCH (09:00)
== END 2018-05-06 19:11 | DRG 811 ==
LOC: ER 07:55 → 7WST 10:42 → ENRESERV 12:29
PROVIDERS: ADMIT Ophthalmology; ATTEND Ophthalmology
DX: D50.9 Iron deficiency anemia, unspecified (principal); L89.153 Pressure ulcer of sacral region, stage 3; E46 Unspecified protein-calorie malnutrition; E11.9 Type 2 diabetes mellitus without complications; E78.00 Pure hypercholesterolemia, unspecified; E87.5 Hyperkalemia; F03.90 Unspecified dementia, unspecified severity, without behavioral disturbance, psychotic disturbance, mood disturbance, and anxiety; L89.899 Pressure ulcer of other site, unspecified stage; I25.10 Atherosclerotic heart disease of native coronary artery without angina pectoris; I50.9 Heart failure, unspecified; I11.0 Hypertensive heart disease with heart failure; D63.8 Anemia in other chronic diseases classified elsewhere; Z74.01 Bed confinement status; I25.2 Old myocardial infarction; Z86.73 Personal history of transient ischemic attack (TIA), and cerebral infarction without residual deficits; Z68.25 Body mass index [BMI] 25.0-25.9, adult
CPT/HCPCS: 36415; 71045; 80048; 82607; 82728; 82746; 83540; 83550; 84443; 87077; 87186; 96374; 99285; J1644

== ENCOUNTER 2018-06-26 23:36 | Inpatient (IN) | payer MEDICARE, MEDICAID ==
[~2018-06-26] VITALS: Ht 167.6 cm; Wt 60.8 kg
[2018-06-27] MEDS ORDERED: SODIUM CHLORIDE 0.9% 1,000 ML IV ONE (00:45)
[2018-06-27 01:07] LABS: BASOPHILS % 1.8 % (0.0-2.0); EOSINOPHILS % 2.4 % (0.0-5.0); HEMATOCRIT. 26.4 % (36.0-48.0); HEMOGLOBIN. 8.7 g/dL (12.0-16.0); LYMPHOCYTES % 13.6 % (20.0-50.0); MEAN CORPUSCULAR HEMOGLOBIN 27.9 pg (28.0-32.0); MEAN CORPUSCULAR VOLUME 84.9 fL (81.0-99.0); MEAN PLATELET VOLUME 9.1 fl (7.4-10.4); MONOCYTES % 8.9 % (2.0-8.0); NEUTROPHILS % 73.3 % (40.0-76.0); PLATELET 192 x1000/uL (130-400); RED BLOOD CELL COUNT 3.11 mill/uL (4.2-5.4); RED CELL DISTRIBUTION WIDTH 21.6 % (11.6-14.6)
[2018-06-27 01:09] LABS: CHLORIDE 104 mEq/L (98-107)
[2018-06-27 03:00] VITALS: BP_SYST 113; BP_SYST 135; BP_DIAS 52; BP_DIAS 56
[2018-06-27 04:00] VITALS: BP 144/66
[2018-06-27] MEDS: DEXT 5%/0.45% NACL KCL 20MEQ/L 1,000 ML IV SCH ×2 (05:30→14:00)
[2018-06-27] MEDS ORDERED: ACETAMINOPHEN 650MG/20.3ML UDC PEG PRN (07:45)
[2018-06-27 08:00] VITALS: BP 148/76
[2018-06-27 08:43] LABS: HEMATOCRIT 25.8 % (36.0-48.0); HEMOGLOBIN 8.5 g/dL (12.0-16.0); MEAN CORPUSCULAR HEMOGLOBIN 27.8 pg (28.0-32.0); MEAN CORPUSCULAR VOLUME 84.7 fL (81.0-99.0); PLATELET 211 x1000/uL (130-400); RED BLOOD CELL COUNT 3.05 mill/uL (4.2-5.4); RED CELL DISTRIBUTION WIDTH 21.1 % (11.6-14.6)
[2018-06-27 09:25] LABS: CHLORIDE 106 mEq/L (98-107)
[2018-06-27 09:35] LABS: TOTAL IRON BINDING CAPACITY 319 ug/dL (250-450)
[2018-06-27 10:11] LABS: VITAMIN B12 SERUM 427 pg/mL (211-911)
[2018-06-27 12:12] VITALS: BP 161/55
[2018-06-27] MEDS ORDERED: DIATR MEGLU/DIATRIZOATE SOLN 30ML ONE (14:38)
[2018-06-27 16:00] VITALS: BP 140/52
[2018-06-27] MEDS ORDERED: MIDAZOLAM HCL 5 MG/5 ML VIAL ONE (16:34)
[2018-06-27] MEDS ORDERED: DEXTROSE 50% WATER 50ML SYRINGE IV PRN ×2 (17:45)
[2018-06-27 20:00] VITALS: BP 132/61
[2018-06-27] MEDS: BLOOD SUGAR DIAGNOSTIC STRIP TEST SCH (21:00)
[2018-06-27] MEDS: INSULIN LISPRO 100 UNITS/ML SUBCUT SCH (21:00)
[2018-06-27] MEDS ORDERED: BLOOD SUGAR DIAGNOSTIC STRIP TEST SCH (21:00)
[2018-06-28] VITALS: BP 131/68
[2018-06-28 04:00] VITALS: BP 140/69
[2018-06-28] MEDS: INSULIN LISPRO 100 UNITS/ML SUBCUT SCH ×4 (07:50→21:00)
[2018-06-28 08:00] VITALS: BP 103/70
[2018-06-28] MEDS: BLOOD SUGAR DIAGNOSTIC STRIP TEST SCH ×4 (08:02→21:10)
[2018-06-28 12:00] VITALS: BP 147/72
[2018-06-28] MEDS: DEXT 5%/0.45% NACL KCL 20MEQ/L 1,000 ML IV SCH ×2 (12:28→23:22)
[2018-06-28 16:00] VITALS: BP 136/61
[2018-06-28 20:00] VITALS: BP 126/54
[2018-06-29] VITALS: BP 137/54
[2018-06-29 04:00] VITALS: BP 177/71
[2018-06-29] MEDS ORDERED: MORPHINE SULFATE 4 MG/ML CPJ (NOT FOR IM USE) IV PRN (05:00)
[2018-06-29] MEDS ORDERED: CLONIDINE 0.1MG TABLET GT PRN (05:00)
[2018-06-29] MEDS: BLOOD SUGAR DIAGNOSTIC STRIP TEST SCH ×2 (06:45→12:37)
[2018-06-29] MEDS: INSULIN LISPRO 100 UNITS/ML SUBCUT SCH ×2 (07:50→12:37)
[2018-06-29 08:00] VITALS: BP 129/49
[2018-06-29] MEDS: DEXT 5%/0.45% NACL KCL 20MEQ/L 1,000 ML IV SCH (08:50)
[2018-06-29 10:34] LABS: HEMATOCRIT 24.4 % (36.0-48.0); HEMOGLOBIN 8.1 g/dL (12.0-16.0); MEAN CORPUSCULAR HEMOGLOBIN 28.3 pg (28.0-32.0); MEAN CORPUSCULAR VOLUME 84.8 fL (81.0-99.0); PLATELET 195 x1000/uL (130-400); RED BLOOD CELL COUNT 2.88 mill/uL (4.2-5.4); RED CELL DISTRIBUTION WIDTH 20.9 % (11.6-14.6)
[2018-06-29 10:46] LABS: CHLORIDE 110 mEq/L (98-107)
[2018-06-29 12:00] VITALS: BP 137/58
[2018-06-29 12:53] VITALS: BP 137/58
== END 2018-06-29 14:27 | DRG 394 ==
LOC: ER 23:36 → 6EST 06-27 01:29 → EDBEDREQTM 06-27 01:34 → EDBEDREQ 06-27 01:34 → EDBEDREQSVC 06-27 01:34 → ENRESERV 06-27 02:11 → 6EST 06-27 03:40
PROVIDERS: ADMIT Ophthalmology; ATTEND Ophthalmology
PROC: 0D20XUZ Change Feeding Device in Upper Intestinal Tract, External Approach (ICD-10-PCS; principal; 2018-06-27)
DX: K94.23 Gastrostomy malfunction (principal); E46 Unspecified protein-calorie malnutrition; R13.12 Dysphagia, oropharyngeal phase; D64.9 Anemia, unspecified; E11.9 Type 2 diabetes mellitus without complications; E78.00 Pure hypercholesterolemia, unspecified; E78.5 Hyperlipidemia, unspecified; F03.90 Unspecified dementia, unspecified severity, without behavioral disturbance, psychotic disturbance, mood disturbance, and anxiety; I10 Essential (primary) hypertension; Y83.8 Other surgical procedures as the cause of abnormal reaction of the patient, or of later complication, without mention of misadventure at the time of the procedure; I25.10 Atherosclerotic heart disease of native coronary artery without angina pectoris; K29.70 Gastritis, unspecified, without bleeding; L89.90 Pressure ulcer of unspecified site, unspecified stage; Z86.73 Personal history of transient ischemic attack (TIA), and cerebral infarction without residual deficits; Z88.2 Allergy status to sulfonamides; Z88.8 Allergy status to other drugs, medicaments and biological substances; Z91.040 Latex allergy status; Z87.440 Personal history of urinary (tract) infections; Z68.21 Body mass index [BMI] 21.0-21.9, adult; Y92.89 Other specified places as the place of occurrence of the external cause
CPT/HCPCS: 36415; 74018; 80048; 82607; 82962; 83540; 83550; 84443; 85027; 96360; 99285; J2250; J7030; Q9963; A4315